=== PATIENT | female | born 1945 | race American Indian/Alaskan Native ===

== ENCOUNTER 2016-07-16 15:01 | Emergency (ER) | payer SELFPAY ==
[~2016-07-16] VITALS: Ht 157.5 cm; Wt 59.7 kg
[2016-07-16 15:06] VITALS: Ht 157.5 cm; Wt 59.7 kg
== END 2016-07-16 19:52 | disposition left against medical advice (07) ==
LOC: E/R 15:01
DX: Z53.21 Procedure and treatment not carried out due to patient leaving prior to being seen by health care provider (principal)